=== PATIENT | male | born 1975 | race Caucasian/White ===

== ENCOUNTER 2018-08-11 20:07 | Emergency (ER) | payer BC, OTHER, SELFPAY ==
[2018-08-11] MEDS ORDERED: Fluorescein Opthalmic Strip ONE (20:32)
[2018-08-11] MEDS ORDERED: Amlodipine 5 MG TAB ONE ×2 (20:42→20:43)
== END 2018-08-11 20:46 | disposition home or self-care (01) ==
LOC: BURERS 20:07
DX: S05.01XA Injury of conjunctiva and corneal abrasion without foreign body, right eye, initial encounter (principal); I10 Essential (primary) hypertension; E78.00 Pure hypercholesterolemia, unspecified; K21.9 Gastro-esophageal reflux disease without esophagitis; F43.10 Post-traumatic stress disorder, unspecified; Z79.899 Other long term (current) drug therapy; X58.XXXA Exposure to other specified factors, initial encounter
CPT/HCPCS: 99283

== ENCOUNTER 2018-11-21 15:49 | Emergency (ER) | payer BC ==
[2018-11-21] MEDS ORDERED: diphenhydrAMINE 12.5 MG/5 ML UDCUP ONE (16:05)
[2018-11-21] MEDS ORDERED: Adacel (T-DAP) 0.5 ML SYRINGE ONE (16:05)
[2018-11-21] MEDS ORDERED: Morphine 10 MG/ML VIAL ONE (16:05)
[2018-11-21] MEDS ORDERED: diphenhydrAMINE 50 MG/ML VIAL ONE (16:06)
[2018-11-21 16:26] LABS: #Eosinphils 0.1 thou/uL (0.0-0.7); #Lymphocytes 1.3 thou/uL (1.20-3.40); #Monocytes 0.3 thou/uL (0.11-0.59); #Neutrophils 2.8 thou/uL (1.40-6.50); %Basophils 0.9 % (0.0-1.0); %Eosinophils 2.8 % (0.0-10.0); %Lymphocytes 28.2 % (21.0-51.0); %Monocytes 6.9 % (0.0-10.0); %Neutrophils 61.2 % (42.0-75.0); Hemoglobin 12.7 g/dL (14.0-18.0); Mean Corpuscular HGB CONC 34.4 g/dL (32.0-36.0); Mean Corpuscular Hemoglobin 28.4 pg (27.0-31.0); Mean Corpuscular Volume 82.4 fL (78.0-98.0); Mean Platelet Volume 6.4 fL (7.4-10.4); Platelet Count 190 thou/uL (130-400); Red Blood Cell (RBC) Count 4.48 mill/uL (4.70-6.10); White Blood Cell (WBC) Count 4.6 thou/uL (4.8-10.8)
[2018-11-21] MEDS ORDERED: CEFAZOLIN 1 GM VIAL ONE ×2 (16:29→16:30)
[2018-11-21] MEDS ORDERED: Sodium Chloride 0.9% 100 ML ONE (16:30)
[2018-11-21 16:34] LABS: PTT 23.7 SEC (22.9-36.1); Prothrombin Time 13.1 SEC (12.0-14.7)
[2018-11-21] MEDS ORDERED: Morphine 4 MG/ML VIAL ONE (16:37)
[2018-11-21 16:42] LABS: ALT (SGPT) 37 U/L (8-55); AST (SGOT) 37 U/L (5-34); Albumin 4.4 g/dL (3.5-5.0); Alkaline Phosphatase 82 U/L (40-150); Anion Gap 15 mmol/L (10-20); BUN (Urea Nitrogen) 20 mg/dL (8.9-20.6); Bilirubin, Total 0.4 mg/dL (0.2-1.2); Calc. Creatinine Clearance 0 mL/min (70-130); Calcium 9.4 mg/dL (7.8-10.44); Carbon Dioxide 22 mmol/L (22-29); Chloride 108 mmol/L (98-107); Estimated GFR-MDRD 58; Globulin 2.6 g/dL (2.4-3.5); Glucose 115 mg/dL (70-105); Potassium 3.4 mmol/L (3.5-5.1); Sodium 142 mmol/L (136-145)
[2018-11-21] MEDS ORDERED: Lidocaine 2% PF 5 ML VIAL ONE ×2 (16:45→16:47)
--- NOTE | 2018-11-21 23:08 | RAD ---
RIGHT HAND THREE VIEWS: 11/21/18 Soft tissue air is seen around the proximal phalanx of the thumb in the IP joint. No fracture was [place] reciated. On one view, there was a question of some linear foreign bodies in the soft tissues, but I cannot confirm them on other views so they could be film artifact. Some degenerative changes are seen in the DIP joint of the fifth finger which may be posttraumatic (old trauma) in nature. IMPRESSION: Soft tissue injury around the thumb, but no acute findings elsewhere. POS: HOME
== END 2018-11-21 17:55 | disposition home or self-care (01) ==
LOC: BURERS 15:49
DX: S61.011A Laceration without foreign body of right thumb without damage to nail, initial encounter (principal); E78.00 Pure hypercholesterolemia, unspecified; K21.9 Gastro-esophageal reflux disease without esophagitis; I10 Essential (primary) hypertension; F43.10 Post-traumatic stress disorder, unspecified; Z79.899 Other long term (current) drug therapy; W23.0XXA Caught, crushed, jammed, or pinched between moving objects, initial encounter
CPT/HCPCS: 12002; 36415; 80053; 85025; 85610; 85730; 90471; 90715; 96365; 96375; J0690; J1200; J2001; J2270; J3490; Q0163

== ENCOUNTER 2021-10-23 01:58 | Emergency (ER) | payer BC | END 2021-10-23 02:38 | disposition home or self-care (01) | LOC: BURERS 01:58 | DX: M10.9 Gout, unspecified (principal); K21.9 Gastro-esophageal reflux disease without esophagitis; I10 Essential (primary) hypertension; Z79.899 Other long term (current) drug therapy | CPT/HCPCS: 99283 ==

== ENCOUNTER 2024-04-14 22:38 | Emergency (ER) | payer BC ==
[2024-04-14] MEDS ORDERED: hydrALAZINE 20 MG/ML VIAL ONE (23:12)
[2024-04-14] MEDS ORDERED: Ketorolac Tromethamine 30 MG (1 mL) VIAL ONE (23:12)
[2024-04-14 23:20] LABS: #Eosinophils 0.1 thou/uL (0.0-0.7); #Lymphocytes 1.6 thou/uL (1.20-3.40); #Monocytes 0.3 thou/uL (0.11-0.59); #Neutrophils 3.3 thou/uL (1.40-6.50); %Basophils 0.5 % (0.0-1.0); %Eosinophils 2.4 % (0.0-10.0); %Lymphocytes 29.5 % (21.0-51.0); %Monocytes 6.3 % (0.0-10.0); %Neutrophils 61.3 % (42.0-75.0); Hematocrit 38.8 % (42.0-52.0); Hemoglobin 13.3 g/dL (14.0-18.0); Mean Corpuscular HGB CONC 34.2 g/dL (32.0-36.0); Mean Corpuscular Hemoglobin 29.3 pg (27.0-31.0); Mean Corpuscular Volume 85.6 fl (78.0-98.0); Mean Platelet Volume 6.2 fL (7.4-10.4); Platelet Count 253 10x3/uL (130-400); RBC Distribution Width 11.3 % (11.5-14.5); Red Blood Cell (RBC) Count 4.53 mill/uL (4.70-6.10); White Blood Cell (WBC) Count 5.4 10x3/uL (4.8-10.8)
[2024-04-14 23:35] LABS: ALT (SGPT) 45 U/L (8-55); AST (SGOT) 42 U/L (5-34); Albumin 4.1 g/dL (3.5-5.0); Alkaline Phosphatase 86 U/L (40-110); Anion Gap 16 mmol/L (10-20); BUN (Urea Nitrogen) 15 mg/dL (8.9-20.6); Bilirubin, Total 0.3 mg/dL (0.2-1.2); Calc. Creatinine Clearance 0 mL/min (70-130); Calcium 9.9 mg/dL (7.8-10.44); Carbon Dioxide 22 mmol/L (22-29); Chloride 107 mmol/L (98-107); Estimated GFR 69; Globulin 3.5 g/dL (2.4-3.5); Glucose 136 mg/dL (70-105); Potassium 3.8 mmol/L (3.5-5.1); Protein, Total 7.6 g/dL (6.0-8.3); Sodium 141 mmol/L (136-145); Troponin I 0.026 ng/mL (< 0.028)
[2024-04-14] MEDS ORDERED: Metoclopramide HCl 10 MG (2 mL) VIAL ONE (23:40)
[2024-04-14] MEDS ORDERED: cloNIDine 0.1 MG TAB ONE (23:40)
== END 2024-04-15 00:10 | disposition home or self-care (01) ==
LOC: BURERS 22:38
DX: I10 Essential (primary) hypertension (principal); E78.00 Pure hypercholesterolemia, unspecified; K21.9 Gastro-esophageal reflux disease without esophagitis; Z79.899 Other long term (current) drug therapy
CPT/HCPCS: 80053; 84484; 85025; 93005; 96374; 96375; J0360; J1885; J2765